=== PATIENT | male | born 1985 | race Caucasian/White ===

== ENCOUNTER 2017-08-25 02:41 | Emergency (ER) | payer OTHER ==
[2017-08-25] MEDS ORDERED: Sodium Chloride 0.9% 10 ML Syringe FLUSH PRN (02:52)
[2017-08-25] MEDS ORDERED: Sodium Chloride 0.9% 2.5 ML Syringe FLUSH PRN (02:52)
[2017-08-25 03:18] LABS: CHLORIDE,CL 106 mmol/L (98-110); SODIUM,NA 140 mmol/L (136-146)
--- NOTE | 2017-08-25 03:28 | EDM.PDOC ---
ED HPI GENERAL MEDICAL PROBLEM - General Chief Complaint: General Stated Complaint: CHEST PAIN Time Seen by Provider: 08/25/17 03:27 - History of Present Illness INITIAL COMMENTS - FREE TEXT/NARRATIVE: HISTORY AND PHYSICAL: History of present illness: Patient 32-year-old white male presents with concern of chest pains vaguely described he states he also some upper back discomfort is now so cisterns breath palpitations nausea vomiting or diaphoresis he denies trauma or other concern is been no fever or chills Review of systems: As per history of present illness and below otherwise all systems reviewed and negative. Past medical history: As per history of present illness and as reviewed below otherwise noncontributory. Surgical history: As per history of present illness and as reviewed below otherwise noncontributory. Social history: No reported history of drug or alcohol abuse. Family history: As per history of present illness and as reviewed below otherwise noncontributory. Physical exam: HEENT: Atraumatic, normocephalic, pupils reactive, negative for conjunctival pallor or scleral icterus, mucous membranes moist, throat clear, neck supple, nontender, trachea midline. Lungs: Clear to auscultation, breath sounds equal bilaterally, chest nontender. Heart: S1S2, regular, negative for clicks, rubs, or JVD. Abdomen: Soft, nondistended, nontender. Negative for masses or hepatosplenomegaly. Negative for costovertebral tenderness. Pelvis: Stable nontender. Genitourinary: Deferred. Rectal: Deferred. Extremities: Atraumatic, negative for cords or calf pain. Neurovascular unremarkable. Neuro: Awake, alert, oriented. Cranial nerves II through XII unremarkable. Cerebellum unremarkable. Motor and sensory unremarkable throughout. Exam nonfocal. Diagnostics: CBC CMP troponin PT/INR chest x-ray EKG Therapeutics: IV O2 monitor Impression: #1 atypical chest pain Definitive disposition and diagnosis as appropriate pending reevaluation and review of above. - Related Data Allergies Allergy/AdvReac Type Severity Reaction Status Date / Time No Known Allergies Allergy Verified 08/25/17 02:45 Home Meds: Home Meds . [No Known Home Meds] 08/25/17 [History] Past Medical History - Past Health History Medical/Surgical History: Denies Medical/Surgical History HEENT History: Reports: None Cardiovascular History: Reports: None Respiratory History: Reports: None Gastrointestinal History: Reports: None Genitourinary History: Reports: None Musculoskeletal History: Reports: None Neurological History: Reports: None Psychiatric History: Reports: None Endocrine/Metabolic History: Reports: None Hematologic History: Reports: None Dermatologic History: Reports: None - Infectious Disease History Infectious Disease History: Reports: None - Past Surgical History Male Surgical History: Reports: None Social & Family History - Family History Family Medical History: Noncontributory - Tobacco Use Smoking Status *Q: Never Smoker - Recreational Drug Use Recreational Drug Use: No ED ROS GENERAL - Review of Systems Review Of Systems: ROS reveals no pertinent complaints other than HPI. ED EXAM, GENERAL - Physical Exam Exam: See Below (See dictation) Course - Vital Signs Last Recorded V/S: Last Vital Signs Temp 36.5 C 08/25/17 02:46 Pulse 90 08/25/17 02:46 Resp 16 08/25/17 02:46 BP 161/94 H 08/25/17 02:46 Pulse Ox 96 08/25/17 02:46 - Orders/Labs/Meds Orders: Active Orders 24 hr Category Date Time Status EKG Documentation Completion [RC] STAT Care 08/25/17 02:53 Active Chest 1V Frontal [CR] Stat Exams 08/25/17 02:52 Ordered Thoracic Spine 2V [CR] Stat Exams 08/25/17 02:54 Ordered COMPREHENSIVE METABOLIC PN,CMP [CHEM] Stat Lab 08/25/17 02:45 Received INFLUENZA A+B AG SCREEN [RM] Stat Lab 08/25/17 02:45 Received TROPONIN I [CHEM] Stat Lab 08/25/17 02:45 Received Sodium Chloride 0.9% [Saline Flush] Med 08/25/17 02:52 Active 10 ml FLUSH ASDIRECTED PRN Sodium Chloride 0.9% [Saline Flush] Med 08/25/17 02:52 Active 2.5 ml FLUSH ASDIRECTED PRN Saline Lock Insert [OM.PC] Stat Oth 08/25/17 02:52 Ordered Medication Orders Sodium Chloride (Saline Flush) 10 ml FLUSH ASDIRECTED PRN PRN Reason: Keep Vein Open Sodium Chloride (Saline Flush) 2.5 ml FLUSH ASDIRECTED PRN PRN Reason: Keep Vein Open Labs: Laboratory Tests 08/25/17 08/25/17 Range/Units 02:45 02:45 WBC 7.72 (4.0-11.0) K/uL RBC 5.38 (4.50-5.90) M/uL Hgb 16.4 (13.0-17.0) g/dL Hct 45.0 (38.0-50.0) % MCV 83.6 (80.0-98.0) fL MCH 30.5 (27.0-32.0) pg MCHC 36.4 (31.0-37.0) g/dL RDW Std Deviation 37.4 (28.0-62.0) fl RDW Coeff of Trey 13 (11.0-15.0) % Plt Count 155 (150-400) K/uL MPV 10.30 (7.40-12.00) fL Neut % (Auto) 78.4 (48.0-80.0) % Lymph % (Auto) 9.3 L (16.0-40.0) % Angelina % (Auto) 10.1 (0.0-15.0) % Eos % (Auto) 2.1 (0.0-7.0) % Baso % (Auto) 0.1 (0.0-1.5) % Neut # (Auto) 6.1 H (1.4-5.7) K/uL Lymph # (Auto) 0.7 (0.6-2.4) K/uL Angelina # (Auto) 0.8 (0.0-0.8) K/uL Eos # (Auto) 0.2 (0.0-0.7) K/uL Baso # (Auto) 0.0 (0.0-0.1) K/uL Nucleated RBC % 0.0 /100WBC Nucleated RBCs # 0 K/uL INR 1.05 (0.86-1.11) Meds: Medications Generic Name Dose Route Start Last Admin Trade Name Freq PRN Reason Stop Dose Admin Sodium Chloride 10 ml 08/25/17 02:52 Saline Flush FLUSH ASDIRECTED PRN Keep Vein Open Sodium Chloride 2.5 ml 08/25/17 02:52 Saline Flush FLUSH ASDIRECTED PRN Keep Vein Open Departure - Departure Time of Disposition: 03:25 Disposition: Home, Self-Care 01 Condition: Good Clinical Impression: Atypical chest pain - Discharge Information Additional Instructions: The following information is given to patients seen in the emergency department who are being discharged to home. This information is to outline your options for follow-up care. We provide all patients seen in our emergency department with a follow-up referral. The need for follow-up, as well as the timing and circumstances, are variable depending upon the specifics of your emergency department visit. If you don't have a primary care physician on staff, we will provide you with a referral. We always advise you to contact your personal physician following an emergency department visit to inform them of the circumstance of the visit and for follow-up with them and/or the need for any referrals to a consulting specialist. The emergency department will also refer you to a specialist when appropriate. This referral assures that you have the opportunity for followup care with a specialist. All of these measure are taken in an effort to provide you with optimal care, which includes your followup. Under all circumstances we always encourage you to contact your private physician who remains a resource for coordinating your care. When calling for followup care, please make the office aware that this follow-up is from your recent emergency room visit. If for any reason you are refused follow-up, please contact the [facility] emergency department at and asked to speak to the emergency department charge nurse. Motrin/Tylenol as directed follow-up primary medical doctor wanted today's return as needed as discussed - My Orders Last 24 Hours: My Active Orders 08/25/17 02:45 COMPREHENSIVE METABOLIC PN,CMP [CHEM] Stat INFLUENZA A+B AG SCREEN [RM] Stat TROPONIN I [CHEM] Stat 08/25/17 02:52 Chest 1V Frontal [CR] Stat Sodium Chloride 0.9% [Saline Flush] 10 ml FLUSH ASDIRECTED PRN Sodium Chloride 0.9% [Saline Flush] 2.5 ml FLUSH ASDIRECTED PRN Saline Lock Insert [OM.PC] Stat 08/25/17 02:53 EKG Documentation Completion [RC] STAT 08/25/17 02:54 Thoracic Spine 2V [CR] Stat - Assessment/Plan Last 24 Hours: My Active Orders 08/25/17 02:45 COMPREHENSIVE METABOLIC PN,CMP [CHEM] Stat INFLUENZA A+B AG SCREEN [RM] Stat TROPONIN I [CHEM] Stat 08/25/17 02:52 Chest 1V Frontal [CR] Stat Sodium Chloride 0.9% [Saline Flush] 10 ml FLUSH ASDIRECTED PRN Sodium Chloride 0.9% [Saline Flush] 2.5 ml FLUSH ASDIRECTED PRN Saline Lock Insert [OM.PC] Stat 08/25/17 02:53 EKG Documentation Completion [RC] STAT 08/25/17 02:54 Thoracic Spine 2V [CR] Stat
[2017-08-25] MEDS ORDERED: Ibuprofen Susp 100 MG/5 ML 10 ML UD Cup PO ONE (04:26)
--- NOTE | 2017-08-25 09:23 | CR ---
EXAM DATE: 08/25/17 PATIENT'S AGE: 32 Patient: EVELYN MADSEN Facility: [place], [place] Site . Site : 1985 Study: XRay Spine Thoracic -08/25/2017 3:24:28 AM Ordering Physician: Humberto Baum Final Report: INDICATION: Upper back pain TECHNIQUE: Thoracic spine 3 view. COMPARISON: None FINDINGS: Bones: The upper thoracic spine is poorly seen due to overlying osseous structures. Alignment is normal. No fractures or significant bone lesions. Joints: Disc spaces and facets are unremarkable. Soft tissues: Unremarkable. IMPRESSION: The upper thoracic spine is poorly seen due to overlying osseous structures. Consider CT thoracic spine for further evaluation if clinically indicated. No abnormality seen within the visualized portions of the spine on this exam. Dictated by Flory Sullivan MD @ Aug 25 2017 3:50AM (Electronic Signature) Report Signed by Proxy. JENNIFER
--- NOTE | 2017-08-25 09:24 | CR ---
EXAM DATE: 08/25/17 PATIENT'S AGE: 32 Patient: EVELYN MADSEN Facility: [place], [place] Site . Site : 1985 Study: XRay Chest [id number]/21/2017 3:24:49 AM Ordering Physician: Humberto Baum Final Report: Indication: Chest pain Technique: Chest 1 view Comparison: None Findings/Impression: Normal cardiomediastinal silhouette. Clear lungs and pleural spaces. No acute osseous abnormality. Dictated by Flory Sullivan MD @ Aug 25 2017 3:52AM (Electronic Signature) Report Signed by Proxy. [facility]ALTH SYSTEMEric
== END 2017-08-25 04:40 | disposition home or self-care (01) ==
LOC: MW.ED 02:41
DX: R07.89 Other chest pain (principal)
CPT/HCPCS: 36415; 71010; 71010-26; 72070; 72070-26; 80053; 84484; 85025; 85610; 87804; 93005; 99283; 99285-25